=== PATIENT | male | born 1950 | race Caucasian/White ===

== ENCOUNTER 2020-11-03 23:47 | Inpatient (IN) ==
[2020-11-04 00:22] LABS: Basophils # 0.1 K/mcL (0.0-0.2); Basophils % 0.5 %; Eosinophils # 0.1 K/mcL (0.0-0.6); Eosinophils % 0.3 %; Hematocrit 36.4 % (37.5-50.1); Hemoglobin 11.7 g/dL (12.9-16.9); Immature Granulocytes % 0.4 % (0-4); Lymphocytes # 0.9 K/mcL (0.6-4.6); Lymphocytes % 4.6 %; Mean Corpuscular HGB Conc 32.1 g/dL (31.6-35.5); Mean Corpuscular Volume 93.3 fL (83.0-100.0); Mean Platelet Volume 11.1 fL (9.4-12.4); Monocytes # 1.5 K/mcL (0.0-1.3); Monocytes % 7.9 %; Platelet Count 231 K/mcL (140-400); Red Cell Distribution Width 13.9 % (11.5-14.5); Segmented Neutrophils % 86.3 %; White Blood Count 18.6 K/mcL (4.3-11.1)
[2020-11-04 00:42] LABS: Alanine Aminotransferase 17 Units/L (7-52); Albumin 4.1 g/dL (3.5-5.7); Albumin/Globulin Ratio 1.3 (1.1-2.2); Alkaline Phosphatase 60 Units/L (34-104); Aspartate Amino Transferase 20 Units/L (13-39); BUN/Creatinine Ratio 12 (6-26); Bilirubin,Total 0.4 mg/dL (0.3-1.0); Blood Urea Nitrogen 13 mg/dL (8-23); Calcium 9.6 mg/dL (8.6-10.3); Carbon Dioxide 26 mEq/L (23-29); Chloride 100 mEq/L (98-107); Creatine Kinase 122 Units/L (30-223); Globulin 3.2 g/dL (2.4-3.5); Glucose 107 mg/dL (70-105); Osmolality,Calculated 281 (280-300); Potassium 4.7 mEq/L (3.5-5.1); Sodium 135 mEq/L (136-145); Total Protein 7.3 g/dL (6.4-8.9); eGFR For African Americans > 60 (> 60); eGFR For Non-African Americans > 60 (> 60)
[2020-11-04 00:43] LABS: Troponin I < 0.03 ng/mL (< 0.04)
[2020-11-04 01:05] LABS: Bilirubin,Urine Negative (Negative); Blood,Urine Negative (Negative); Clarity,Urine Clear (Clear); Color,Urine Light-Yellow (Yellow); Glucose,Urine (UA) Normal (Normal); Ketones,Urine Negative (Negative); Leukocyte Esterase,Urine Negative (Negative); Nitrite,Urine Negative (Negative); Protein,Urine Negative (Neg-Trace); Specific Gravity,Urine 1.012 (1.010-1.025); Urobilinogen,Urine Normal (Normal)
[2020-11-04 01:56] LABS: Adenovirus Not Detected (Not Detect); Bordetella Pertussis Not Detected (Not Detect); Chlamydophila pneumoniae Not Detected (Not Detect); Coronavirus 229E Not Detected (Not Detect); Coronavirus HKU1 Not Detected (Not Detect); Coronavirus NL63 Not Detected (Not Detect); Coronavirus OC43 Not Detected (Not Detect); Human Metapneumovirus Not Detected (Not Detect); Human Rhinovirus/Enterovirus DETECTED (Not Detect); Influenza A Subtype 2009 H1 Not Detected (Not Detect); Influenza B Not Detected (Not Detect); Mycoplasma pneumoniae Not Detected (Not Detect); Parainfluenza Virus 1 Not Detected (Not Detect); Parainfluenza Virus 2 Not Detected (Not Detect); Parainfluenza Virus 3 Not Detected (Not Detect); Parainfluenza Virus 4 Not Detected (Not Detect); Respiratory Syncytial Virus Not Detected (Not Detect); SARS-CoV-2 Not Detected (Not Detect)
[2020-11-04] MEDS ORDERED: cefTRIAXone 1,000 MG in 0.9 % Sodium Chloride Mini Bag 100 ML IVPB ONE (02:04)
[2020-11-04] MEDS ORDERED: Azithromycin 250 MG TABLET PO ONE (02:04)
[2020-11-04] MEDS ORDERED: Ondansetron 4 MG/2 ML VIAL IVP PRN ×2 (04:10→14:17)
[2020-11-04] MEDS ORDERED: Naloxone 0.4 MG/ML INJ IVP PRN (04:10)
[2020-11-04] MEDS ORDERED: Ipratropium Neb 0.5 MG NEBULIZER IH PRN (07:50)
[2020-11-04] MEDS ORDERED: *HR* LORazepam 2 MG/ML VIAL IVP PRN ×2 (07:57)
[2020-11-04] MEDS ORDERED: Ipratropium/Albuterol Neb 3 ML ONE (08:07)
[2020-11-04] MEDS: Ipratropium/Albuterol Neb 3 ML IH SCH ×5 (08:10→23:48)
[2020-11-04 08:13] LABS: Ethanol < 10 mg/dL (Less than 10); Magnesium 1.8 mg/dL (1.6-2.6)
[2020-11-04] MEDS: *HR* LORazepam 2 MG/ML VIAL IVP PRN ×3 (09:35→11:43)
[2020-11-04] MEDS ORDERED: Acetaminophen IV 1,000 MG/100 ML BAG IVPB ONE (10:28)
[2020-11-04] MEDS ORDERED: Isovue-370 500 ML BOTTLE IVP ONE (14:00)
[2020-11-04] MEDS ORDERED: 0.9 % Sodium Chloride 1,000 ML IVC ONE (14:16)
[2020-11-04] MEDS ORDERED: Acetaminophen 325 MG TABLET PO PRN (14:16)
[2020-11-04] MEDS ORDERED: Dextrose Gel 15 GM/37.5 ML TUBE PO PRN ×2 (14:19)
[2020-11-04] MEDS ORDERED: *HR* Dextrose 50 % in Water (Vial) 50 ML VIAL IVP PRN (14:19)
[2020-11-04] MEDS ORDERED: D5% in Water 1,000 ML IVC PRN (14:19)
[2020-11-04] MEDS ORDERED: 0.9 % Sodium Chloride 1,000 ML IVC SCH (14:30)
[2020-11-04] MEDS: Piperacillin/Tazobactam 3.375 GM in 0.9 % Sodium Chloride Mini Bag 100 ML IVPB SCH (16:10)
[2020-11-04] MEDS: Insulin LISPRO 300 UNITS/3 ML VIAL SQ SCH (17:29)
[2020-11-04] MEDS: Thiamine (B-1) 100 MG, Folic Acid 1 MG, MVI, adult with vitamin K 10 ML in 0.9 % Sodi... IVPB SCH (18:10)
[2020-11-04] MEDS ORDERED: cefTRIAXone 1,000 MG in 0.9 % Sodium Chloride Mini Bag 100 ML IVPB SCH (22:00)
[2020-11-04] MEDS: Lactobacillus 1 EACH CAP.SPRINK PO SCH (22:04)
[2020-11-04] MEDS: Gabapentin 300 MG CAPSULE PO SCH (22:04)
[2020-11-05] MEDS: Piperacillin/Tazobactam 3.375 GM in 0.9 % Sodium Chloride Mini Bag 100 ML IVPB SCH ×4 (00:24→23:45)
[2020-11-05] MEDS: Insulin LISPRO 300 UNITS/3 ML VIAL SQ SCH ×3 (00:25→18:19)
[2020-11-05] MEDS: Ipratropium/Albuterol Neb 3 ML IH SCH ×6 (03:39→23:42)
[2020-11-05] MEDS: Aspirin Enteric Coated 81 MG Tablet PO SCH (07:51)
[2020-11-05] MEDS: Gabapentin 300 MG CAPSULE PO SCH ×3 (07:51→20:07)
[2020-11-05] MEDS: Lactobacillus 1 EACH CAP.SPRINK PO SCH ×2 (09:00→20:07)
[2020-11-05 11:05] LABS: Basophils # 0.1 K/mcL (0.0-0.2); Basophils % 0.7 %; Eosinophils % 0.2 %; Hematocrit 33.2 % (37.5-50.1); Hemoglobin 10.4 g/dL (12.9-16.9); Immature Granulocytes % 0.3 % (0-4); Lymphocytes # 1.4 K/mcL (0.6-4.6); Lymphocytes % 11.1 %; Mean Corpuscular HGB Conc 31.3 g/dL (31.6-35.5); Mean Corpuscular Hemoglobin 30.2 pg (28.0-33.3); Mean Corpuscular Volume 96.5 fL (83.0-100.0); Mean Platelet Volume 10.7 fL (9.4-12.4); Monocytes % 8.1 %; Neutrophils # 10.2 K/mcL (1.6-8.9); Platelet Count 212 K/mcL (140-400); Red Blood Count 3.44 M/mcL (4.19-5.50); Red Cell Distribution Width 14.2 % (11.5-14.5); Segmented Neutrophils % 79.6 %; White Blood Count 12.8 K/mcL (4.3-11.1)
[2020-11-05 11:13] LABS: INR 1.2
[2020-11-05 11:19] LABS: VBG HCO3 24 mEq/L (21-27); VBG PCO2 44 mmHg (41-51); VBG PH 7.35 pH Units (7.32-7.42); VBG PO2 147 mmHg (25-50)
[2020-11-05 11:26] LABS: BUN/Creatinine Ratio 12 (6-26); Blood Urea Nitrogen 11 mg/dL (8-23); Calcium 8.8 mg/dL (8.6-10.3); Carbon Dioxide 21 mEq/L (23-29); Chloride 104 mEq/L (98-107); Glucose 97 mg/dL (70-105); Osmolality,Calculated 283 (280-300); Phosphorous 2.7 mg/dL (2.7-4.5); Potassium 4.3 mEq/L (3.5-5.1); Sodium 137 mEq/L (136-145); eGFR For African Americans > 60 (> 60); eGFR For Non-African Americans > 60 (> 60)
[2020-11-05] MEDS: Thiamine (B-1) 100 MG, Folic Acid 1 MG, MVI, adult with vitamin K 10 ML in 0.9 % Sodi... IVPB SCH (18:10)
[2020-11-06] MEDS: Ipratropium/Albuterol Neb 3 ML IH SCH ×5 (03:48→20:41)
[2020-11-06 04:16] LABS: Basophils # 0.1 K/mcL (0.0-0.2); Basophils % 0.6 %; Eosinophils # 0.3 K/mcL (0.0-0.6); Eosinophils % 2.6 %; Hemoglobin 10.4 g/dL (12.9-16.9); Immature Granulocytes % 0.3 % (0-4); Lymphocytes # 1.5 K/mcL (0.6-4.6); Lymphocytes % 14.1 %; Mean Corpuscular HGB Conc 31.5 g/dL (31.6-35.5); Mean Corpuscular Hemoglobin 30.3 pg (28.0-33.3); Mean Corpuscular Volume 96.2 fL (83.0-100.0); Mean Platelet Volume 11.1 fL (9.4-12.4); Monocytes # 1.3 K/mcL (0.0-1.3); Monocytes % 11.6 %; Neutrophils # 7.7 K/mcL (1.6-8.9); Platelet Count 233 K/mcL (140-400); Red Blood Count 3.43 M/mcL (4.19-5.50); Segmented Neutrophils % 70.8 %; White Blood Count 10.9 K/mcL (4.3-11.1)
[2020-11-06 04:43] LABS: BUN/Creatinine Ratio 10 (6-26); Blood Urea Nitrogen 9 mg/dL (8-23); Calcium 8.9 mg/dL (8.6-10.3); Carbon Dioxide 25 mEq/L (23-29); Chloride 106 mEq/L (98-107); Glucose 104 mg/dL (70-105); Osmolality,Calculated 287 (280-300); Potassium 3.8 mEq/L (3.5-5.1); Sodium 139 mEq/L (136-145); eGFR For African Americans > 60 (> 60); eGFR For Non-African Americans > 60 (> 60)
[2020-11-06] MEDS: Piperacillin/Tazobactam 3.375 GM in 0.9 % Sodium Chloride Mini Bag 100 ML IVPB SCH ×2 (07:44→16:31)
[2020-11-06] MEDS: Insulin LISPRO 300 UNITS/3 ML VIAL SQ SCH ×3 (07:55→16:27)
[2020-11-06] MEDS: Lactobacillus 1 EACH CAP.SPRINK PO SCH ×2 (09:19→20:18)
[2020-11-06] MEDS: Gabapentin 300 MG CAPSULE PO SCH ×3 (09:19→20:18)
[2020-11-06] MEDS: Aspirin Enteric Coated 81 MG Tablet PO SCH (09:20)
[2020-11-06 09:37] LABS: Estimated Average Glucose 146 mg/dl; Hemoglobin A1C 6.7 %
[2020-11-06] MEDS ORDERED: E-Z-PAQUE (BARIUM SULF) SUSP 1 BOTTLE PO ONE (13:18)
[2020-11-06] MEDS ORDERED: E-Z-HD (BARIUM SULF) SUSPENSION PO ONE (13:18)
[2020-11-06] MEDS: Thiamine (B-1) 100 MG, Folic Acid 1 MG, MVI, adult with vitamin K 10 ML in 0.9 % Sodi... IVPB SCH (17:54)
[2020-11-07] MEDS: Ipratropium/Albuterol Neb 3 ML IH SCH ×6 (00:02→19:44)
[2020-11-07] MEDS: Piperacillin/Tazobactam 3.375 GM in 0.9 % Sodium Chloride Mini Bag 100 ML IVPB SCH ×3 (00:47→16:59)
[2020-11-07 01:11] LABS: BUN/Creatinine Ratio 10 (6-26); Blood Urea Nitrogen 8 mg/dL (8-23); Calcium 8.6 mg/dL (8.6-10.3); Carbon Dioxide 28 mEq/L (23-29); Chloride 106 mEq/L (98-107); Glucose 96 mg/dL (70-105); Osmolality,Calculated 288 (280-300); Potassium 3.8 mEq/L (3.5-5.1); Sodium 140 mEq/L (136-145); eGFR For African Americans > 60 (> 60); eGFR For Non-African Americans > 60 (> 60)
[2020-11-07 01:21] LABS: Basophils # 0.1 K/mcL (0.0-0.2); Basophils % 0.6 %; Eosinophils # 0.3 K/mcL (0.0-0.6); Eosinophils % 2.6 %; Hematocrit 32.4 % (37.5-50.1); Hemoglobin 10.2 g/dL (12.9-16.9); Immature Granulocytes % 0.4 % (0-4); Lymphocytes # 1.8 K/mcL (0.6-4.6); Lymphocytes % 17.1 %; Mean Corpuscular HGB Conc 31.5 g/dL (31.6-35.5); Mean Corpuscular Hemoglobin 30.1 pg (28.0-33.3); Mean Corpuscular Volume 95.6 fL (83.0-100.0); Mean Platelet Volume 11.7 fL (9.4-12.4); Monocytes # 1.2 K/mcL (0.0-1.3); Neutrophils # 7.1 K/mcL (1.6-8.9); Platelet Count 239 K/mcL (140-400); Red Blood Count 3.39 M/mcL (4.19-5.50); Red Cell Distribution Width 13.9 % (11.5-14.5); Segmented Neutrophils % 68.3 %; White Blood Count 10.4 K/mcL (4.3-11.1)
[2020-11-07] MEDS: Insulin LISPRO 300 UNITS/3 ML VIAL SQ SCH ×3 (07:48→17:16)
[2020-11-07] MEDS: Lactobacillus 1 EACH CAP.SPRINK PO SCH ×2 (08:27→20:44)
[2020-11-07] MEDS: Aspirin Enteric Coated 81 MG Tablet PO SCH (08:27)
[2020-11-07] MEDS: Gabapentin 300 MG CAPSULE PO SCH ×3 (08:27→20:44)
[2020-11-08] MEDS: Piperacillin/Tazobactam 3.375 GM in 0.9 % Sodium Chloride Mini Bag 100 ML IVPB SCH ×3 (00:55→14:49)
[2020-11-08 02:44] LABS: Basophils # 0.1 K/mcL (0.0-0.2); Basophils % 0.9 %; Eosinophils # 0.6 K/mcL (0.0-0.6); Eosinophils % 4.8 %; Hematocrit 33.5 % (37.5-50.1); Hemoglobin 10.5 g/dL (12.9-16.9); Immature Granulocytes % 0.3 % (0-4); Lymphocytes # 1.7 K/mcL (0.6-4.6); Lymphocytes % 14.6 %; Mean Corpuscular HGB Conc 31.3 g/dL (31.6-35.5); Mean Corpuscular Hemoglobin 30.2 pg (28.0-33.3); Mean Corpuscular Volume 96.3 fL (83.0-100.0); Mean Platelet Volume 11.7 fL (9.4-12.4); Monocytes # 1.2 K/mcL (0.0-1.3); Monocytes % 10.3 %; Neutrophils # 8.1 K/mcL (1.6-8.9); Platelet Count 263 K/mcL (140-400); Red Blood Count 3.48 M/mcL (4.19-5.50); Red Cell Distribution Width 13.8 % (11.5-14.5); Segmented Neutrophils % 69.1 %; White Blood Count 11.7 K/mcL (4.3-11.1)
[2020-11-08 03:02] LABS: BUN/Creatinine Ratio 9 (6-26); Blood Urea Nitrogen 7 mg/dL (8-23); Calcium 9.1 mg/dL (8.6-10.3); Carbon Dioxide 26 mEq/L (23-29); Chloride 104 mEq/L (98-107); Glucose 81 mg/dL (70-105); Osmolality,Calculated 287 (280-300); Potassium 3.9 mEq/L (3.5-5.1); Sodium 140 mEq/L (136-145); eGFR For African Americans > 60 (> 60); eGFR For Non-African Americans > 60 (> 60)
[2020-11-08] MEDS: Ipratropium/Albuterol Neb 3 ML IH SCH ×7 (04:03→23:22)
[2020-11-08] MEDS: Insulin LISPRO 300 UNITS/3 ML VIAL SQ SCH ×2 (08:03→11:51)
[2020-11-08] MEDS: Lactobacillus 1 EACH CAP.SPRINK PO SCH ×2 (08:05→20:51)
[2020-11-08] MEDS: Folic Acid 1 MG TABLET PO SCH (08:05)
[2020-11-08] MEDS: Aspirin Enteric Coated 81 MG Tablet PO SCH (08:05)
[2020-11-08] MEDS: Thiamine (B-1) 100 MG TABLET PO SCH (08:05)
[2020-11-08] MEDS: Gabapentin 300 MG CAPSULE PO SCH ×3 (08:06→20:51)
[2020-11-09] MEDS: Piperacillin/Tazobactam 3.375 GM in 0.9 % Sodium Chloride Mini Bag 100 ML IVPB SCH ×2 (00:33→08:10)
[2020-11-09] MEDS: Ipratropium/Albuterol Neb 3 ML IH SCH ×2 (03:50→08:03)
[2020-11-09] MEDS: Insulin LISPRO 300 UNITS/3 ML VIAL SQ SCH ×2 (07:04→07:58)
[2020-11-09 07:57] VITALS: BP 129/68
[2020-11-09 08:12] LABS: Basophils # 0.1 K/mcL (0.0-0.2); Eosinophils # 0.6 K/mcL (0.0-0.6); Eosinophils % 4.8 %; Hematocrit 38.1 % (37.5-50.1); Hemoglobin 11.9 g/dL (12.9-16.9); Immature Granulocytes % 0.4 % (0-4); Lymphocytes # 1.9 K/mcL (0.6-4.6); Lymphocytes % 16.8 %; Mean Corpuscular HGB Conc 31.2 g/dL (31.6-35.5); Mean Corpuscular Hemoglobin 29.4 pg (28.0-33.3); Mean Corpuscular Volume 94.1 fL (83.0-100.0); Monocytes # 1.1 K/mcL (0.0-1.3); Monocytes % 9.6 %; Neutrophils # 7.7 K/mcL (1.6-8.9); Platelet Count 324 K/mcL (140-400); Red Blood Count 4.05 M/mcL (4.19-5.50); Red Cell Distribution Width 13.6 % (11.5-14.5); Segmented Neutrophils % 67.4 %; White Blood Count 11.4 K/mcL (4.3-11.1)
[2020-11-09] MEDS: Lactobacillus 1 EACH CAP.SPRINK PO SCH (08:14)
[2020-11-09] MEDS: Thiamine (B-1) 100 MG TABLET PO SCH (08:14)
[2020-11-09] MEDS: Folic Acid 1 MG TABLET PO SCH (08:14)
[2020-11-09] MEDS: Gabapentin 300 MG CAPSULE PO SCH (08:14)
[2020-11-09] MEDS: Aspirin Enteric Coated 81 MG Tablet PO SCH (08:14)
== END 2020-11-09 11:22 | disposition home health service (06) | DRG 871 ==
LOC: EMEROOARM 23:47 → 3ANU 23:47 → SUATTDRO 11-04 02:57 → 3ANU 11-04 03:34 → 2NNU 11-04 12:45 → SUATTDRO 11-05 18:10 → 2ANU 11-07 12:58
PROVIDERS: ADMIT Internal Medicine; ATTEND Family Medicine

== ENCOUNTER 2020-12-06 18:05 | Inpatient (IN) ==
[2020-12-06 19:01] LABS: Hematocrit 36.5 % (37.5-50.1); Hemoglobin 11.4 g/dL (12.9-16.9); Immature Granulocytes % 0.3 % (0-4); Lymphocytes # 0.3 K/mcL (0.6-4.6); Lymphocytes % 3.9 %; Mean Corpuscular HGB Conc 31.2 g/dL (31.6-35.5); Mean Corpuscular Volume 92.9 fL (83.0-100.0); Mean Platelet Volume 11.8 fL (9.4-12.4); Monocytes # 0.5 K/mcL (0.0-1.3); Monocytes % 6.2 %; Neutrophils # 6.5 K/mcL (1.6-8.9); Platelet Count 171 K/mcL (140-400); Red Blood Count 3.93 M/mcL (4.19-5.50); Red Cell Distribution Width 14.1 % (11.5-14.5); Segmented Neutrophils % 89.6 %; White Blood Count 7.3 K/mcL (4.3-11.1)
[2020-12-06 19:12] LABS: BUN/Creatinine Ratio 19 (6-26); Blood Urea Nitrogen 22 mg/dL (8-23); Calcium 9.2 mg/dL (8.6-10.3); Carbon Dioxide 28 mEq/L (23-29); Chloride 103 mEq/L (98-107); Glucose 127 mg/dL (70-105); Osmolality,Calculated 297 (280-300); Potassium 4.6 mEq/L (3.5-5.1); Sodium 141 mEq/L (136-145); Troponin I < 0.03 ng/mL (< 0.04); eGFR For African Americans > 60 (> 60); eGFR For Non-African Americans > 60 (> 60)
[2020-12-06] MEDS ORDERED: Azithromycin 500 MG in 0.9 % Sodium Chloride 250 ML IVPB ONE (19:19)
[2020-12-06] MEDS ORDERED: cefTRIAXone 1,000 MG in Water for inj. (sterile) 10 ML IVP ONE (19:19)
[2020-12-06] MEDS ORDERED: 0.9 % Sodium Chloride 1,000 ML IVC ONE (19:47)
[2020-12-06] MEDS ORDERED: Dexamethasone 4 MG/ML VIAL IVP ONE (20:33)
[2020-12-06] MEDS ORDERED: Naloxone 0.4 MG/ML INJ IVP PRN (21:00)
[2020-12-06] MEDS ORDERED: *HR* LORazepam 2 MG/ML VIAL IVP PRN ×3 (23:59)
[2020-12-07] MEDS: Ipratropium 1 PUFF INHALER IH SCH ×6 (04:04→23:59)
[2020-12-07] MEDS: *HR* Enoxaparin 40 MG/0.4 ML SYRINGE SQ SCH (05:25)
[2020-12-07 05:41] LABS: Hematocrit 35.7 % (37.5-50.1); Immature Granulocytes % 0.5 % (0-4); Lymphocytes # 0.5 K/mcL (0.6-4.6); Lymphocytes % 7.8 %; Mean Corpuscular HGB Conc 30.8 g/dL (31.6-35.5); Mean Corpuscular Hemoglobin 28.4 pg (28.0-33.3); Mean Corpuscular Volume 92.2 fL (83.0-100.0); Mean Platelet Volume 11.3 fL (9.4-12.4); Monocytes # 0.6 K/mcL (0.0-1.3); Monocytes % 9.2 %; Neutrophils # 5.3 K/mcL (1.6-8.9); Platelet Count 175 K/mcL (140-400); Red Blood Count 3.87 M/mcL (4.19-5.50); Red Cell Distribution Width 14.3 % (11.5-14.5); Segmented Neutrophils % 82.5 %; White Blood Count 6.4 K/mcL (4.3-11.1)
[2020-12-07 05:52] LABS: Prothrombin Time 11.4 Seconds (9.4-12.1)
[2020-12-07 06:06] LABS: BUN/Creatinine Ratio 19 (6-26); Blood Urea Nitrogen 18 mg/dL (8-23); Calcium 9.2 mg/dL (8.6-10.3); Carbon Dioxide 30 mEq/L (23-29); Chloride 104 mEq/L (98-107); Glucose 137 mg/dL (70-105); Osmolality,Calculated 300 (280-300); Potassium 4.6 mEq/L (3.5-5.1); Sodium 143 mEq/L (136-145); eGFR For African Americans > 60 (> 60); eGFR For Non-African Americans > 60 (> 60)
[2020-12-07] MEDS: Aspirin Enteric Coated 81 MG Tablet PO SCH (08:26)
[2020-12-07] MEDS: Fenofibrate 54 MG TABLET PO SCH (08:26)
[2020-12-07] MEDS: Gabapentin 300 MG CAPSULE PO SCH ×3 (08:26→20:03)
[2020-12-07] MEDS ORDERED: Azithromycin 500 MG in 0.9 % Sodium Chloride 250 ML IVPB SCH (09:00)
[2020-12-07] MEDS ORDERED: cefTRIAXone 2,000 MG in Water for inj. (sterile) 20 ML IVP SCH (09:00)
[2020-12-07] MEDS ORDERED: Cholecalciferol (D-3) 1,000 UNIT (25MCG) TABLET PO SCH (09:00)
[2020-12-07] MEDS ORDERED: Budesonide/Formoterol 80/4.5 1 PUFF INH IH SCH (10:00)
[2020-12-07] MEDS: Dexamethasone 4 MG/ML VIAL IVP SCH (15:18)
[2020-12-07] MEDS: Furosemide 40 MG/4 ML VIAL IVP SCH (17:43)
[2020-12-07 19:09] LABS: Albumin 4.1 g/dL (3.5-5.7); Albumin/Globulin Ratio 1.2 (1.1-2.2); Bilirubin,Direct 0.1 mg/dL (0.0-0.2); Bilirubin,Indirect 0.2 mg/dL (0.0-1.0); Bilirubin,Total 0.3 mg/dL (0.3-1.0); Globulin 3.4 g/dL (2.4-3.5); Total Protein 7.5 g/dL (6.4-8.9)
[2020-12-07] MEDS ORDERED: Remdesivir 200 MG in 0.9 % Sodium Chloride 100 ML IVPB ONE (20:00)
[2020-12-08] MEDS: Ipratropium 1 PUFF INHALER IH SCH ×6 (04:20→23:54)
[2020-12-08] MEDS: *HR* Enoxaparin 40 MG/0.4 ML SYRINGE SQ SCH (05:00)
[2020-12-08 07:46] LABS: Hemoglobin 11.9 g/dL (12.9-16.9); Mean Corpuscular HGB Conc 31.3 g/dL (31.6-35.5); Mean Corpuscular Hemoglobin 29.4 pg (28.0-33.3); Mean Corpuscular Volume 93.8 fL (83.0-100.0); Mean Platelet Volume 12.2 fL (9.4-12.4); Platelet Count 194 K/mcL (140-400); Red Blood Count 4.05 M/mcL (4.19-5.50); White Blood Count 4.9 K/mcL (4.3-11.1)
[2020-12-08 08:02] LABS: BUN/Creatinine Ratio 25 (6-26); Blood Urea Nitrogen 23 mg/dL (8-23); Calcium 9.4 mg/dL (8.6-10.3); Carbon Dioxide 30 mEq/L (23-29); Chloride 103 mEq/L (98-107); Glucose 96 mg/dL (70-105); Osmolality,Calculated 298 (280-300); Potassium 4.1 mEq/L (3.5-5.1); Sodium 142 mEq/L (136-145); eGFR For African Americans > 60 (> 60); eGFR For Non-African Americans > 60 (> 60)
[2020-12-08] MEDS: Fenofibrate 54 MG TABLET PO SCH (09:47)
[2020-12-08] MEDS: Aspirin Enteric Coated 81 MG Tablet PO SCH (09:47)
[2020-12-08] MEDS: Cholecalciferol (D-3) 1,000 UNIT (25MCG) TABLET PO SCH (09:47)
[2020-12-08] MEDS: Dexamethasone 4 MG/ML VIAL IVP SCH (09:48)
[2020-12-08] MEDS: Furosemide 40 MG/4 ML VIAL IVP SCH ×2 (09:48→20:25)
[2020-12-08] MEDS: Gabapentin 300 MG CAPSULE PO SCH ×3 (09:48→20:24)
[2020-12-08 15:03] LABS: Albumin 4.2 g/dL (3.5-5.7); Albumin/Globulin Ratio 1.1 (1.1-2.2); Bilirubin,Direct 0.1 mg/dL (0.0-0.2); Bilirubin,Indirect 0.3 mg/dL (0.0-1.0); Bilirubin,Total 0.4 mg/dL (0.3-1.0); Globulin 3.7 g/dL (2.4-3.5); Total Protein 7.9 g/dL (6.4-8.9)
[2020-12-08] MEDS: Remdesivir 100 MG in 0.9 % Sodium Chloride 100 ML IVPB SCH (21:33)
[2020-12-09] MEDS: Ipratropium 1 PUFF INHALER IH SCH ×5 (04:10→20:15)
[2020-12-09] MEDS: *HR* Enoxaparin 40 MG/0.4 ML SYRINGE SQ SCH (05:28)
[2020-12-09 07:18] LABS: Hematocrit 42.4 % (37.5-50.1); Hemoglobin 13.1 g/dL (12.9-16.9); Mean Corpuscular HGB Conc 30.9 g/dL (31.6-35.5); Mean Corpuscular Hemoglobin 28.5 pg (28.0-33.3); Mean Corpuscular Volume 92.4 fL (83.0-100.0); Mean Platelet Volume 12.1 fL (9.4-12.4); Platelet Count 271 K/mcL (140-400); Red Blood Count 4.59 M/mcL (4.19-5.50); Red Cell Distribution Width 14.3 % (11.5-14.5); White Blood Count 6.5 K/mcL (4.3-11.1)
[2020-12-09 07:36] LABS: Albumin 4.2 g/dL (3.5-5.7); Albumin/Globulin Ratio 1.2 (1.1-2.2); Bilirubin,Direct 0.1 mg/dL (0.0-0.2); Bilirubin,Indirect 0.3 mg/dL (0.0-1.0); Bilirubin,Total 0.4 mg/dL (0.3-1.0); Globulin 3.5 g/dL (2.4-3.5); Total Protein 7.7 g/dL (6.4-8.9)
[2020-12-09 07:38] LABS: BUN/Creatinine Ratio 28 (6-26); Blood Urea Nitrogen 33 mg/dL (8-23); Carbon Dioxide 32 mEq/L (23-29); Chloride 100 mEq/L (98-107); Glucose 101 mg/dL (70-105); Osmolality,Calculated 309 (280-300); Potassium 3.9 mEq/L (3.5-5.1); Sodium 146 mEq/L (136-145); eGFR For African Americans > 60 (> 60); eGFR For Non-African Americans > 60 (> 60)
[2020-12-09] MEDS: Furosemide 40 MG/4 ML VIAL IVP SCH (07:46)
[2020-12-09] MEDS: Dexamethasone 4 MG/ML VIAL IVP SCH (07:46)
[2020-12-09] MEDS: Aspirin Enteric Coated 81 MG Tablet PO SCH (07:47)
[2020-12-09] MEDS: Cholecalciferol (D-3) 1,000 UNIT (25MCG) TABLET PO SCH (07:47)
[2020-12-09] MEDS: Gabapentin 300 MG CAPSULE PO SCH ×3 (07:47→19:59)
[2020-12-09] MEDS: Fenofibrate 54 MG TABLET PO SCH (07:47)
[2020-12-09] MEDS: Remdesivir 100 MG in 0.9 % Sodium Chloride 100 ML IVPB SCH (19:58)
[2020-12-10] MEDS: Ipratropium 1 PUFF INHALER IH SCH ×6 (00:18→20:41)
[2020-12-10] MEDS: *HR* Enoxaparin 40 MG/0.4 ML SYRINGE SQ SCH (05:36)
[2020-12-10 06:55] LABS: Albumin 3.8 g/dL (3.5-5.7); Albumin/Globulin Ratio 1.2 (1.1-2.2); Bilirubin,Direct 0.1 mg/dL (0.0-0.2); Bilirubin,Indirect 0.2 mg/dL (0.0-1.0); Bilirubin,Total 0.3 mg/dL (0.3-1.0); Globulin 3.1 g/dL (2.4-3.5); Total Protein 6.9 g/dL (6.4-8.9)
[2020-12-10] MEDS: Aspirin Enteric Coated 81 MG Tablet PO SCH (07:48)
[2020-12-10] MEDS: Cholecalciferol (D-3) 1,000 UNIT (25MCG) TABLET PO SCH (07:48)
[2020-12-10] MEDS: Gabapentin 300 MG CAPSULE PO SCH ×3 (07:48→19:55)
[2020-12-10] MEDS: Dexamethasone 4 MG/ML VIAL IVP SCH (07:49)
[2020-12-10] MEDS: Fenofibrate 54 MG TABLET PO SCH (07:49)
[2020-12-10] MEDS: Remdesivir 100 MG in 0.9 % Sodium Chloride 100 ML IVPB SCH (19:52)
[2020-12-11] MEDS: Ipratropium 1 PUFF INHALER IH SCH ×6 (00:03→19:53)
[2020-12-11 04:51] LABS: Hematocrit 41.2 % (37.5-50.1); Hemoglobin 12.7 g/dL (12.9-16.9); Mean Corpuscular HGB Conc 30.8 g/dL (31.6-35.5); Mean Corpuscular Hemoglobin 28.9 pg (28.0-33.3); Mean Corpuscular Volume 93.8 fL (83.0-100.0); Mean Platelet Volume 11.7 fL (9.4-12.4); Platelet Count 274 K/mcL (140-400); Red Blood Count 4.39 M/mcL (4.19-5.50); Red Cell Distribution Width 13.9 % (11.5-14.5); White Blood Count 8.6 K/mcL (4.3-11.1)
[2020-12-11 05:16] LABS: BUN/Creatinine Ratio 29 (6-26); Blood Urea Nitrogen 30 mg/dL (8-23); Calcium 9.5 mg/dL (8.6-10.3); Carbon Dioxide 33 mEq/L (23-29); Chloride 100 mEq/L (98-107); Glucose 119 mg/dL (70-105); Osmolality,Calculated 303 (280-300); Potassium 3.5 mEq/L (3.5-5.1); Sodium 143 mEq/L (136-145); eGFR For African Americans > 60 (> 60); eGFR For Non-African Americans > 60 (> 60)
[2020-12-11] MEDS: *HR* Enoxaparin 40 MG/0.4 ML SYRINGE SQ SCH (05:33)
[2020-12-11] MEDS: Fenofibrate 54 MG TABLET PO SCH (08:28)
[2020-12-11] MEDS: Cholecalciferol (D-3) 1,000 UNIT (25MCG) TABLET PO SCH (08:28)
[2020-12-11] MEDS: Gabapentin 300 MG CAPSULE PO SCH ×3 (08:28→20:48)
[2020-12-11] MEDS: Aspirin Enteric Coated 81 MG Tablet PO SCH (08:29)
[2020-12-11] MEDS: Dexamethasone 4 MG/ML VIAL IVP SCH (08:29)
[2020-12-11 12:43] LABS: Alanine Aminotransferase 22 Units/L (7-52); Albumin 3.6 g/dL (3.5-5.7); Albumin/Globulin Ratio 1.1 (1.1-2.2); Alkaline Phosphatase 51 Units/L (34-104); Aspartate Amino Transferase 18 Units/L (13-39); Bilirubin,Direct 0.1 mg/dL (0.0-0.2); Bilirubin,Indirect 0.3 mg/dL (0.0-1.0); Bilirubin,Total 0.4 mg/dL (0.3-1.0); Globulin 3.2 g/dL (2.4-3.5); Total Protein 6.8 g/dL (6.4-8.9)
[2020-12-11] MEDS: Remdesivir 100 MG in 0.9 % Sodium Chloride 100 ML IVPB SCH (20:47)
[2020-12-12] MEDS: Ipratropium 1 PUFF INHALER IH SCH ×5 (03:34→15:30)
[2020-12-12] MEDS: *HR* Enoxaparin 40 MG/0.4 ML SYRINGE SQ SCH (05:23)
[2020-12-12] MEDS: Aspirin Enteric Coated 81 MG Tablet PO SCH (08:54)
[2020-12-12] MEDS: Fenofibrate 54 MG TABLET PO SCH (08:54)
[2020-12-12] MEDS: Cholecalciferol (D-3) 1,000 UNIT (25MCG) TABLET PO SCH (08:54)
[2020-12-12] MEDS: Gabapentin 300 MG CAPSULE PO SCH ×2 (08:55→15:19)
[2020-12-12] MEDS: Dexamethasone 4 MG/ML VIAL IVP SCH (08:55)
[2020-12-12] MEDS ORDERED: Furosemide 40 MG TABLET PO SCH (09:00)
[2020-12-12 17:07] VITALS: BP 122/66
== END 2020-12-12 18:00 | disposition home health service (06) | DRG 177 ==
LOC: EMEROOARM 18:05 → 2NENU 18:05 → SUATTDRO 12-07 18:35
PROVIDERS: ADMIT Student in an Organized Health Care Education/Training Program; ATTEND Internal Medicine